=== PATIENT | female | born 1960 | race Caucasian/White ===

== ENCOUNTER 2019-12-25 00:23 | Day surgery (SDC) | payer OTHER, SELFPAY ==
[2019-12-14 10:31] VITALS: BMI 36.7
[2019-12-25 10:07] VITALS: BP 143/80; PULSE 67; RESP 16; TEMP 36.9; O2SAT 99
[2019-12-25] MEDS: LACTATED RINGERS 1,000 ML 150 ML IV CONT (10:09)
--- NOTE | 2019-12-25 10:26 | PM.HPGS ---
History of Present Illness History of Present Illness Consent: Risks, benefits, and alternatives have been discussed and questions answered. Patient agrees to proceed with procedure. Chief complaint: Reflux/ Neoplasm Screening/ Hx Colon Polyps Narrative: Amanda Wise is a 59 year old W female referred for gastroscopy for evaluation of postprandial abdominal pain usually occurs 30 minutes after meals. This started August 2019. She states the no ankle have a bowel movement or pain will resolve. No change in bowel pattern. Patient had a colonoscopy 7 years ago which time a hyperplastic polyp was removed. Patient having colonoscopy secondary to family history of polyps. Patient has had no weight loss. She is not anemic. [facility] Past Medical History Medical History (Updated 12/25/19 @ 10:28 by Guevara Stoner MD) GERD (gastroesophageal reflux disease) Hypertension Surgical History Surgical History (Updated 12/25/19 @ 10:28 by Guevara Stoner MD) History of bladder suspension procedure S/P bilateral inguinal herniorrhaphy Status post right breast lumpectomy Meds Home Medications and Allergies Home Medications Medication Instructions Recorded Confirmed Type esomeprazole magnesium [Nexium] 20 mg PO DAILY 12/14/19 12/14/19 History estradiol 0.5 mg DAILY 12/14/19 12/14/19 History fesoterodine [Toviaz] 4 mg PO DAILY 12/14/19 12/14/19 History medroxyprogesterone See Rx Instructions .ROUTE .COMPLEX 12/14/19 12/14/19 History metoprolol tartrate 25 mg PO BID 12/14/19 12/14/19 History triamterene-hydrochlorothiazid 1 tablet PO DAILY 12/14/19 12/14/19 History Allergies Allergy/AdvReac Type Severity Reaction Status Date / Time latex Allergy Unknown Verified 12/25/19 10:06 Vital Signs Vital Signs - 24 hr 12/25/19 10:07 Temperature 36.9 C Pulse Rate 67 Respiratory Rate 16 Blood Pressure 143/80 H Pulse Oximetry 99 Exam Const: Orientation/consciousness: patient oriented x3 Resp: Auscultation: clear to auscultation bilaterally Cardio: Rate: regular rate Rhythm: regular rhythm Heart sounds: no murmurs GI: GI Palp: Yes Soft to palpation, No Tenderness to palpation present (GI), Yes No hepatosplenomegaly present and No Palpable mass present Auscultation: normal bowel sounds Neuro: General: patient oriented x3 and no focal motor deficits Extrem: General: no pedal edema Assessment and Plan Additional Plan EGD for evaluation of postprandial abdominal pain colonoscopy secondary family history of colon polyps
--- NOTE | 2019-12-25 10:29 | WPDANESEPPF ---
Anes - Initial Pre Proc Eval Procedure: Operation Date: 12/25/19 10:30 Proposed Procedures p Esophagogastroduodenoscopy & Screening Colonoscopy - Guevara Stoner MD Date/Time: 12/25/19 10:29 Surgeon: Guevaar Stoner MD Pre Op Diagnosis: Reflux/ Neoplasm Screening/ Hx Colon Polyps Patient Data Age: 59 Gender: F Height: 5 ft 4 in Weight: 97.6 kg Last Vital Signs Temp 36.9 C 12/25/19 10:07 Pulse 67 12/25/19 10:07 Resp 16 12/25/19 10:07 BP 143/80 H 12/25/19 10:07 Pulse Ox 99 12/25/19 10:07 Allergies Allergy/AdvReac Type Severity Reaction Status Date / Time latex Allergy Unknown Verified 12/25/19 10:06 Home Medications Medication Instructions Recorded Confirmed Type esomeprazole magnesium [Nexium] 20 mg PO DAILY 12/14/19 12/14/19 History estradiol 0.5 mg DAILY 12/14/19 12/14/19 History fesoterodine [Toviaz] 4 mg PO DAILY 12/14/19 12/14/19 History medroxyprogesterone See Rx Instructions .ROUTE .COMPLEX 12/14/19 12/14/19 History metoprolol tartrate 25 mg PO BID 12/14/19 12/14/19 History triamterene-hydrochlorothiazid 1 tablet PO DAILY 12/14/19 12/14/19 History Patient hx anesthesia problems: none Family hx anesthesia problems: none [facility] Past Medical History Medical History GERD (gastroesophageal reflux disease) Hypertension Surgical History Surgical History History of bladder suspension procedure S/P bilateral inguinal herniorrhaphy Status post right breast lumpectomy Anes - Eval Final PreProcedure Day of Procedure 12/25/19 10:29 Patient weight: obese Lungs: clear to auscultation Airway: Mallampati scale Neurological: alert and oriented Last oral intake: >/= 8 hours Emergent: no Anesthetic plan: proceed Anesthesia type and monitoring: general GIVS and standard monitoring Informed Consent: The patient's anesthetic plan and its attendant risks and benefits were discussed with the patient/family/POA. Questions were solicited and answers provided to the satisfaction of the patient/family/POA.
[2019-12-25 12:23] VITALS: BP 117/78; PULSE 66; RESP 16; O2SAT 100
[2019-12-25 12:33] VITALS: BP 110/62; PULSE 69; RESP 16; O2SAT 100
[2019-12-25 12:43] VITALS: BP 113/70; PULSE 60; RESP 16; O2SAT 100
== END 2019-12-25 13:00 | disposition home or self-care (01) ==
PROVIDERS: PCP Internal Medicine; Visit Provider Internal Medicine Gastroenterology
PROC: 0DJ08ZZ Inspection of Upper Intestinal Tract, Via Natural or Artificial Opening Endoscopic (ICD-10-PCS; CPT 43235; principal; 2019-12-25 10:30)
DX: Z12.11 Encounter for screening for malignant neoplasm of colon (principal); K64.4 Residual hemorrhoidal skin tags; K57.30 Diverticulosis of large intestine without perforation or abscess without bleeding; K29.50 Unspecified chronic gastritis without bleeding; K44.9 Diaphragmatic hernia without obstruction or gangrene; K21.9 Gastro-esophageal reflux disease without esophagitis; I10 Essential (primary) hypertension; E66.9 Obesity, unspecified; Z68.36 Body mass index [BMI] 36.0-36.9, adult
CPT/HCPCS: 45378; 43239; 87081; J2704; J7120

== ENCOUNTER → 2021-03-13 15:48 | Outpatient (CLI) | payer OTHER, SELFPAY ==
--- NOTE | ~2021-03-13 | MM_ITS ---
EXAMINATION: MM screening [facility] BI w pavan HISTORY: Screening mammogram TECHNIQUE: Craniocaudal and mediolateral oblique 3-D tomosynthesis images were obtained and synthetic 2-D images were generated. CAD analysis was submitted and interpreted. COMPARISON: 12/05/2019, 11/26/2018, 11/24/2017 BREAST PARENCHYMAL COMPOSITION: The breasts are heterogeneously dense, which may obscure small masses . FINDINGS: There is chronic, stable architectural distortion in the outer right breast at the site of prior excisional biopsy. There is no evidence of suspicious mass, calcification, or architectural dis tortion to suggest malignancy in either breast. There has been no suspicious interval change. IMPRESSION: 1. No mammographic evidence of malignancy. 2. Recommend routine screening mammography in one year. BI-RADS Category 2: Benign finding(s). Reviewed, dictated and finalized at location A.
== END ==
DX: Z12.31 Encounter for screening mammogram for malignant neoplasm of breast (principal)
CPT/HCPCS: 77063; 77067

== ENCOUNTER → 2022-05-06 15:57 | Outpatient (CLI) | payer OTHER, SELFPAY ==
--- NOTE | ~2022-05-06 | MM_ITS ---
EXAMINATION: MM screening [facility] w [facility] HISTORY: Screening TECHNIQUE: Craniocaudal and mediolateral oblique 3-D tomosynthesis images were obtained and synthetic 2-D images were generated. CAD analysis was submitted and interpreted. COMPARISON: Comparison to multiple prior studies sequentially, with oldest reviewed study dated 05/2015. BREAST PARENCHYMAL COMPOSITION: The breasts are extremely dense, which lowers the sensitivity of mamm ography FINDINGS: There is no evidence of suspicious mass, calcification, or architectural distortion to sugg est malignancy in either breast. There has been no suspicious interval change. IMPRESSION: 1. No mammographic evidence of malignancy. 2. Recommend routine screening mammography in one year. BI-RADS Category 1: Negative Reviewed, dictated and finalized at location A.
== END ==
PROVIDERS: PCP Obstetrics & Gynecology; Visit Provider Obstetrics & Gynecology
DX: Z12.31 Encounter for screening mammogram for malignant neoplasm of breast (principal)
CPT/HCPCS: 77063; 77067

== ENCOUNTER 2023-05-14 08:48 | Outpatient (CLI) | payer OTHER, SELFPAY ==
--- NOTE | ~2023-05-14 | MMUS_ITS ---
EXAMINATION: MM diagnostic [facility] BI w [place], US breast BI complete HISTORY: Bilateral breast lumps TECHNIQUE: ML, MLO and CC 3-D tomosynthesis images of both breasts were performed and synthetic 2-D i mages were generated. CAD analysis was submitted and interpreted. High resolution complete bilateral breast ultrasound examination including all 4 quadrants and subareolar areas was performed. COMPARISON: 05/06/2022, 03/13/2021, 12/05/2019 bilateral screening examinations BREAST PARENCHYMAL COMPOSITION: The breasts are heterogeneously dense, which may obscure small masses . FINDINGS: MAMMOGRAPHIC FINDINGS: There are bilateral scattered benign calcifications. No suspicious mass, interval architectural disto rtion, malignant calcification, skin thickening or retraction of either breast is detected. ULTRASOUND: Multiple bilateral breast cysts, largest on the right measuring up to 6 mm, the largest on the left m easuring up to 7 mm. At 1:00 2 cm from the nipple at the left breast there is a comma-shaped approximately 3.5 x 3.4 mm hy poechoic solid lesion, without posterior shadowing. 6 month follow-up ultrasound imaging of this is r ecommended. At left breast 7:00 6 cm from the nipple there is a mildly irregular circumscribed hypoechoic up to 6 .9 mm lesion with through transmission, likely a cyst, K cyst or benign solid lesion. 6 month follow- up ultrasound imaging at this area is recommended. IMPRESSION: 1. Probable benign findings 2. 6 month follow-up targeted left breast ultrasound examination is recommended with attention to 1:0 0 2 cm from nipple and 7:00 6 cm from nipple BI-RADS category 3, probably benign findings. Reviewed, dictated and finalized at location A. IMPRESSION: 1. Probable benign findings 2. 6 month follow-up targeted left breast ultrasound examination is recommended with attention to 1:00 2 cm from nipple and 7:00 6 cm from nipple BI-RADS category 3, probably benign findings.
== END 2023-05-14 08:49 | disposition home or self-care (01) ==
LOC: CHSIMG 08:49
PROVIDERS: PCP Obstetrics & Gynecology; Visit Provider Obstetrics & Gynecology
DX: N63.15 Unspecified lump in the right breast, overlapping quadrants (principal)
CPT/HCPCS: 76641; 77062; 77066; G0279

== ENCOUNTER 2024-02-16 09:16 | Outpatient (CLI) | payer OTHER, SELFPAY ==
--- NOTE | ~2024-02-16 | US_ITS ---
US breast LT limited DATE: 02/16/2024 10:28 INDICATION: Six-month follow-up TECHNIQUE: Targeted left breast ultrasound at 1:00 and 6:00-7:00 COMPARISON: 05/14/2023 diagnostic bilateral mammogram and bilateral complete breast ultrasound examina tion FINDINGS: 1:00 4 cm from nipple: There is poorly circumscribed irregular anti-parallel hypoechogenicity measuri ng up to approximately 3.4 mm dimension, with posterior shadowing. Ultrasound-guided biopsy is recomm ended. 7:00 6 cm from nipple: Irregular and typed parallel hypoechoic up to 3.7 mm wide 5.2 mm deep area wit h internal vascularity on color flow imaging; ultrasound-guided biopsy is recommended. 7:00 6 cm from nipple: 4.4 mm sonolucency with posterior wall enhancement, consistent with cyst. There is heterogeneously dense stroma. IMPRESSION: Small irregular poorly circumscribed anti-parallel hypoechoic lesions of right breast at 1:00 4 cm from nipple and 7:00 6 cm from nipple Recommendation: Ultrasound-guided biopsy of these right breast 1:00 and 7:00 areas BI-RADS Category 4: Suspicious abnormality; biopsy should be considered Dr. Cantu telephoned the report and ultrasound-guided biopsy recommendation on 02/16/2024 at 1145 hours to voicemail at [phone]. Reviewed, dictated and finalized at Location [facility]. Reviewed, dictated and finalized at location A. IMPRESSION: Small irregular poorly circumscribed anti-parallel hypoechoic lesio ns of right breast at 1:00 4 cm from nipple and 7:00 6 cm from nipple Recommendation: Ultrasound-guided biopsy of these right breast 1:00 and 7:00 ar eas BI-RADS Category 4: Suspicious abnormality; biopsy should be considered Dr. Cantu telephoned the report and ultrasound-guided biopsy recommendation on at 1145 hours to voicemail at [phone].
== END 2024-02-16 09:17 ==
PROVIDERS: Visit Provider Obstetrics & Gynecology
DX: R92.8 Other abnormal and inconclusive findings on diagnostic imaging of breast (principal)
CPT/HCPCS: 76642